=== PATIENT | female | born 1995 | race Caucasian/White ===

== ENCOUNTER 2017-02-20 16:36 | Observation (INO) | payer SELFPAY ==
[2017-02-20] MEDS ORDERED: NS 0.9% 1000 ML* 1,000 ML IV ONE (16:58)
[2017-02-20 18:10] LABS: Urine Bilirubin Negative (Negative); Urine Glucose Negative (Negative); Urine Nitrite Negative (Negative)
[2017-02-20 18:18] LABS: Hematocrit 42 % (35-47); Hemoglobin 14.1 g/dl (12.0-16.0); Mean Corpuscular HGB Conc 34 g/dl (31-36); Mean Corpuscular Hemoglobin 31 pg (27-31); Mean Corpuscular Volume 90 fL (80-97); Mean Platelet Volume 8 um3 (7.4-10.4); Red Blood Count 4.62 10^6/ul (4.0-5.4); Red Cell Distribution Width 12 % (10.5-15); White Blood Count 14.2 10^3/ul (3.5-10.8)
[2017-02-20 18:19] LABS: Add Diff/Slide Review? Slide Review Added; Comments Flag Yes
[2017-02-20 18:33] LABS: ALT 19 U/L (7-52); AST 23 U/L (13-39); Albumin 4.8 g/dL (3.2-5.2); Alkaline Phosphatase 66 U/L (34-104); Anion Gap 9 mmol/L (2-11); BUN/Creatinine Ratio 15.4 (8-20); Blood Urea Nitrogen 10 mg/dL (6-24); CO2 Carbon Dioxide 27 mmol/L (22-32); Calcium 9.1 mg/dL (8.6-10.3); Chloride 100 mmol/L (101-111); EGFR African American 145.3 (>60); Globulin 3.3 g/dL (2-4); Glucose 89 mg/dL (70-100); Potassium 3.4 mmol/L (3.5-5.0); Sodium 136 mmol/L (133-145); Total Protein 8.1 g/dL (6.4-8.9)
[2017-02-20 18:39] LABS: Benzodiazepine Urine Screen None Detected (None Detect)
[2017-02-20] MEDS ORDERED: Potassium Chlor TAB* 20 MEQ TAB.ER PO ONE (18:40)
[2017-02-20 19:05] LABS: Alcohol < 10 mg/dL (<10)
--- NOTE | 2017-02-20 19:56 | ED ---
Hernan Ugarte Benjamin, scribed for Dmitriy Rausch MD on 02/20/17 at 1705 . Syncope/Near Syncope - HPI Summary HPI Summary: 22yo female BIBA after having 2 episodes of Sz at work. Pt doesnt recall the episode, but per EMS, pt was lowered to the ground after the first episode, and then turned apnic and blue. Pt appeared to have passed out temporarily and soon had the second episode. Pt denies any incontinence or biting her tongue during her episodes. Pt feel racing heart immediately after but after drinking water and sitting down for 5 minutes, HR returned to normal. Pt now states feeling little anxious but otherwise normal. Pt is not on any meds and denies any significant PMHx. No hx of Sz or syncope, but FHx of Sz. Pt is 3 days late on her MP. Pt has odd hours at work and pt states taking cardoon, a natural herb that has similar effects to caffeine. One of the known side effects for overdosing Cardoon is Sz. - History Of Current Complaint Chief Complaint: EDSeizure Time Seen by Provider: 02/20/17 16:49 Hx Obtained From: Patient Onset/Duration: Sudden Onset, Lasting Minutes, Resolved Timing: Minutes Context: Witnessed, Loss Of Consciousness Activity At Onset: At Rest Associated Head Trauma: No Aggravating Factor(s): Nothing Alleviating Factor(s): Spontaneous Resolution Associated Signs And Symptoms: Seizure - x2 - Allergies/Home Medications Allergies/Adverse Reactions: Allergies Allergy/AdvReac Type Severity Reaction Status Date / Time No Known Allergies Allergy Verified 09/14/14 13:27 PMH/Surg Hx/FS Hx/Imm Hx Endocrine/Hematology History: Denies: Hx Diabetes, Hx Thyroid Disease Cardiovascular History: Denies: Hx Hypertension Respiratory History: Denies: Hx Asthma, Hx Chronic Obstructive Pulmonary Disease (COPD) GI History: Denies: Hx Ulcer Infectious Disease History: No Infectious Disease History: Denies: Hx Clostridium Difficile, Hx Hepatitis, Hx Human Immunodeficiency Virus (HIV), Hx of Known/Suspected MRSA, Hx Shingles, Hx Tuberculosis, Traveled Outside the [place] in Last 30 Days - Family History Known Family History: Positive: Seizure Disorder - Social History Occupation: Employed Full-time Lives: Alone Alcohol Use: Occasionally Substance Use Type: Reports: None Smoking Status (MU): Current Some Day Smoker Type: Cigarettes Length of Time of Smoking/Using Tobacco: social smoker Review of Systems Constitutional: Negative Eyes: Negative ENT: Negative Cardiovascular: Negative Respiratory: Negative Gastrointestinal: Negative Genitourinary: Negative Musculoskeletal: Negative Skin: Negative Neurological: Other - Szx2 Positive: Syncope Positive: Anxious All Other Systems Reviewed And Are Negative: Yes Physical Exam Triage Information Reviewed: Yes Vital Signs On Initial Exam: Initial Vitals Temp Pulse Resp BP Pulse Ox 99.3 F 120 16 142/90 100 02/20/17 16:40 02/20/17 16:40 02/20/17 16:40 02/20/17 16:40 02/20/17 16:40 Vital Signs Reviewed: Yes Appearance: Positive: Well-Appearing Head/Face: Positive: Normal Head/Face Inspection ENT: Positive: Normal ENT inspection Neck: Positive: Nontender Respiratory/Lung Sounds: Positive: Clear to Auscultation, Breath Sounds Present Cardiovascular: Positive: RRR. Negative: Murmur Abdomen Description: Positive: Nontender Musculoskeletal: Positive: Strength/ROM Intact Neurological: Positive: Sensory/Motor Intact, Alert, Oriented to Person Place, Time, CN Intact II-III, Speech Normal Psychiatric: Positive: Normal Diagnostics - Vital Signs Vital Signs Temp Pulse Resp BP Pulse Ox 02/20/17 16:40 99.3 F 120 16 142/90 100 - Laboratory Result Diagrams: 02/20/17 18:03 02/20/17 18:03 Lab Statement: Any lab studies that have been ordered have been reviewed, and results considered in the medical decision making process. - EKG 1748. Cardiac Rate: Tachycardia - 114bpm EKG Rhythm: Sinus Tachycardia EKG Interpretation: No STEMI Re-Evaluation - Re-Evaluation First Eval Re-Evaluation Time: 18:48 Comment: New information obtained by pt: Pt has odd hours at work and pt states taking kardoon, a natural herb that has similar effects to caffeine. One of the known side effects for overdosing Cardoon is Sz. RN will call poison control. Course/Dx Course Of Treatment: The patient has been using the street drug Kratom, and per poison center the side effect is seizure. The patient is stable hemodynamically, and non focal neuro exam. Will observe and plan for dc home. She is not homicidal or suicidal. She states she has been taking the drug to attempt to stay up with a varying work schedule and little sleep. Poison center recommends an OBV admission on tele over night. Discussed to Dr. Akers (Hospitalist) for admission. 19:54. - Diagnoses Provider Diagnoses: Seizure, Drug abuse Discharge - Discharge Plan Condition: Good Disposition: ADMITTED TO [facility] Referrals: No Primary Care Phys,NOPCP [Primary Care Provider] - The documentation as recorded by the Hernan ross Benjamin accurately reflects the service I personally performed and the decisions made by me, Dmitriy Rausch MD.
--- NOTE | 2017-02-20 20:00 | RAD ---
INDICATION: Seizure. COMPARISON: There are no prior studies available for comparison. TECHNIQUE: Contiguous axial sections of the brain were obtained from the skull base to the vertex without contrast. FINDINGS: The ventricles, cisterns and sulci are within normal limits. No significant focal abnormality or mass effect is seen. There is no evidence for hemorrhage. No significant focal osseous abnormality is seen. The visualized portion of the paranasal sinuses and mastoid air cells appear clear. IMPRESSION: NO EVIDENCE FOR ACUTE INTRACRANIAL ABNORMALITY.
--- NOTE | 2017-02-20 20:07 | RAD ---
INDICATION: Chest pain. COMPARISON: There are no prior studies available for comparison. TECHNIQUE: Dual-energy PA and lateral views of the chest were obtained. FINDINGS: The heart is within normal limits in size. Mediastinal and hilar contours appear within normal limits. The lungs are clear. No pleural effusion is present. There is a linear density which projects laterally over the left hemithorax which is likely artifactual. IMPRESSION: NO EVIDENCE FOR ACTIVE CARDIOPULMONARY DISEASE.
[2017-02-20] MEDS: NS 0.9% 1000 ML* 1,000 ML IV SCH (22:46)
[2017-02-20] MEDS ORDERED: Nicotine Inhaler* 10 MG AMP INH PRN (23:44)
[2017-02-21] MEDS ORDERED: Mouth Piece, Nicotine* 1 EACH CARTRIDGE ONE (00:06)
--- NOTE | 2017-02-21 05:55 | HP ---
HISTORY AND PHYSICAL: DATE OF ADMISSION: 02/20/17 CHIEF COMPLAINT: Seizure. HISTORY OF PRESENT ILLNESS: The patient is a 22-year-old woman who says she was at work and the nex t thing she knew a coworker was waking her up and told her she had a seizure. She does not have any specifics, said she was turning blue. Apparently, it lasted about 2 minutes. This has never happen ed before. She admits she has been taking a natural product called Everpurse to help her stay awake in addition to coffee. She has been having trouble with her sleep pattern since she has started her [employer] job. She denies any tongue biting or bowel or bladder incontinence. She currently feels well. She did bite the inside of her cheek apparently when this happened. PAST MEDICAL HISTORY: She has no significant past medical history. MEDICATIONS: She is on medications. ALLERGIES: She has no known drug allergies. FAMILY HISTORY: Reviewed and noncontributory. SOCIAL HISTORY: She smokes about 2 packs per week. Social alcohol. Does take medications like Matt ax and oxycodone. She works in a cafe. She has got a boyfriend. She has got no children. REVIEW OF SYSTEMS: A 14-point review of systems was completed with the patient. All pertinent posit mandeep and negatives are in the history of present illness, otherwise is negative. PHYSICAL EXAMINATION GENERAL: A pleasant woman lying in bed, in no acute distress. VITAL SIGNS: Temperature 98.2 degrees, heart rate 88 beats per minute, respiratory rate 20 breaths per minute, pulse ox 100% on room air, blood pressure 132/83. HEENT: Normocephalic, atraumatic. Pupils are equal, round and reactive to light. Moist mucous memb ranes. NECK: Supple. No JVD, bruits, palpable thyroid or lymphadenopathy. CHEST: Clear to auscultation and percussion bilaterally. CARDIOVASCULAR: S1, S2 appreciated. Regular rate and rhythm. No murmurs, gallops, or rubs. ABDOMEN: Positive bowel sounds in all 4 quadrants. Soft, nontender, and nondistended. No hepatosp lenomegaly. EXTREMITIES: No cyanosis, clubbing, or edema. +2 peripheral pulses bilaterally. NEUROLOGIC: Alert and oriented x3. Moves all extremities. SKIN: No rashes or abnormalities. LABORATORY DATA: White count , hemoglobin 14.1, hematocrit 42, platelets 321. Sodium 136, pot assium 3.4, chloride 100, CO2 27, BUN 10, creatinine 0.65, glucose 89. Urine tox is negative. Urin alysis unremarkable. INR is 0.86. Chest x-ray was interpreted by Radiology as no evidence of activ e cardiopulmonary disease. Brain CT, no evidence for acute intracranial abnormality. EKG shows sinu s tachycardia at a rate of 114 beats per minute, normal axis, no acute ST-T wave changes, incomplete right bundle branch block. ASSESSMENT AND PLAN: 1. Seizure. Apparently, in speaking to [employer], this natural treatment she was taking can c ause seizure-like activity. They recommend monitoring her for one day. We will place her on teleme try and monitor. Get EEG in a.m. If she is stable, she may be to go home as early as tomorrow. If not, consider Neurology consult. 2. FEN. Regular diet. 3. DVT prophylaxis. None. She is young and ambulatory. 4. The patient is a full code. TIME SPENT: Over 75 minutes were spent on this H and P, more than 40 minutes of which was spent dir ect [id number] contact with the patient in evaluation, physical exam, counseling, and coordination of care. [id number]/[facility] #: [id number]
[2017-02-21] MEDS: NS 0.9% 1000 ML* 1,000 ML IV SCH (08:43)
--- NOTE | 2017-02-21 09:57 | DCNOTE ---
Patient seen this morning. No further issues overnight. Says she thinks she may have taken more of the Kratom than usual. Says she typically takes it as a stimulant for extra energy as coffee makes her a bit tremulous. Says she will stop taking it. On exam, RRR, s1 and s2 present, no m/g/r, abd soft, NTND, BS+, AOx3, CN II-XII intact, strength 5/5 throughout B/L UEs and LEs, sensation intact and symmetric B/L EEG done this morning, pending read. If normal will plant to send home. No need for anti-seizure medications at this point. Will need PCP follow-up which we will arrange.
[2017-02-21 12:13] VITALS: BP 114/69
--- NOTE | 2017-02-22 03:54 | EEG ---
ELECTROENCEPHALOGRAPHY REPORT: DATE OF STUDY: 02/21/17 - ROOM #438 LOCATION: The patient is an inpatient. ORDERING PHYSICIAN: Samy Akers MD HISTORY: This is a 22-year-old left-handed woman admitted after a seizure-like episode while she was at work. She recalls being at work on the [employer] and then suddenly woken up by her coworker, being told she had a seizure. The episode lasted about 2 minutes. She was confused when she came to. Her coworker states she turned blue and bit the left side of her cheek. Of note, she states that she has been taking Kratom, and some synthetic opioid and stimulant she bought online. She has been taking this along with coffee and feels she may have taken too many. She has also had difficulty sleeping recently. Her father has epilepsy. EEG's requested to evaluate for epileptiform abnormalities. MEDICATIONS: 1. Nicotine inhaler. 2. Normal saline. DESCRIPTION: The most notable feature of the interictal EEG is occasional brief paroxysms of higher voltage, delta range slowing in the frontocentral regions bilaterally. This slowing often had a bias towards the left hemisphere. In addition, on a few occasions, there was focal slowing in the left temporal region intermixed with sharp features, which were maximal at T5. The slowing was polymorphic in nature and the sharp features did not have definitive epileptiform characteristics. Otherwise, the waking background showed appropriate organization with clearly defined anterior to posterior voltage and frequency gradients. There was a well - defined posterior dominant rhythm of 10.5 Hz, which was symmetrical and showed normal reactivity. Anteriorly, there was an expected pattern of lower voltage, irregular, mixed faster frequencies. Hyperventilation and photic stimulation were not performed. The patient did not become significantly drowsy during the study. Throughout the recording, there were no definitive epileptiform abnormalities. IMPRESSION: This is an abnormal waking EEG due to the presence of occasional paroxysms of frontocentrally predominant slowing, which had a bias to the left hemisphere as well as 2 to 3 periods of focal slowing in the left temporal region associated with sharp features, which were not definitively epileptiform in nature. These findings are suggestive of underlying neuronal dysfunction in the left temporal region. The periods of frontocentrally predominant slowing may be indicative of a more generalized nonspecific cerebral dysfunction. The background is otherwise normal. There are no definitive epileptiform abnormalities. [id number]/[facility] #: [id number] [facility]
--- NOTE | 2017-02-22 15:25 | DS ---
DISCHARGE SUMMARY: DATE OF ADMISSION: 02/20/17 DATE OF DISCHARGE: 02/21/17 PRIMARY CARE PHYSICIAN: The patient is in the process of obtaining a new PCP. PRINCIPAL DISCHARGE DIAGNOSIS: Seizure likely secondary to supplement Kratom. DISCHARGE MEDICATION REGIMEN: None. STUDIES DONE DURING HOSPITALIZATION: Chest x-ray, impression: No evidence for active cardiopulmona ry disease. CT of the brain, impression: No evidence for acute intracranial abnormality. EEG shows abnormal waking EEG due to the presence of the occasional paroxysms to frontocentrally pre dominant slowing, which had a bias of the left hemisphere as well as 2 to 3 periods of focal slowing in the left temporal region associated with sharp features, which were not definitively epileptifor m in nature. These findings are suggestive of underlying neuronal dysfunction in the left temporal region. Periods of frontocentral predominant slowing may be indicative of a more generalized nonspec ific cerebral dysfunction. The background is otherwise normal. There are no definitive epileptiform abnormalities. HISTORY OF PRESENT ILLNESS AND HOSPITAL SUMMARY: Please see the full history and physical by Dr. Braulio Akers for full details. Briefly, Ms. Correa is a 22-year-old female with no past medical history , who has been taking a natural product called Kratom as a stimulant, who has an episode of unrespon siveness and possible seizure activity at work. She has never had a history of seizures in the past . She did not have any bowel or bladder incontinence. She apparently bit the inside of her cheek. It sounded as if she had some postictal confusion afterwards, which resolved. She was monitored in the hospital overnight. CT of the brain was unremarkable. EEG was done that did not show any ally r epileptiform activities, but did show some abnormalities. The patient had no further seizure acti vities here in the hospital. It was recommended she stop this Kratom supplement and she will be arr anged to follow up with the PCP as an outpatient. No indication for any antiepileptic medications a t this time. TIME SPENT: Total time spent on this discharge, 40 minutes. This is a summary of the hospitalization. Please see the full medical record for further details. [id number]/[facility] #: [id number]
== END 2017-02-21 16:11 | disposition home or self-care (01) ==
LOC: ED 16:36 → MEDTELE 20:18
PROVIDERS: ADMIT Internal Medicine; ATTEND Hospitalist
DX: F19.10 Other psychoactive substance abuse, uncomplicated (principal); R56.9 Unspecified convulsions; F17.200 Nicotine dependence, unspecified, uncomplicated
CPT/HCPCS: 36415; 70450; 71020; 80053; 80307; 80320; 81003; 83605; 83735; 84484; 84702; 85025; 85610; 93005; 95816; 99284; A9270-GY; G0378; G0480

== ENCOUNTER 2018-02-22 15:11 | Emergency (ER) | payer SELFPAY ==
[2018-02-22 15:39] VITALS: BP 124/81
[2018-02-22] MEDS ORDERED: Amoxicillin/Clavulanate TAB* 875 MG PO ONE (16:39)
--- NOTE | 2018-02-22 16:47 | UC ---
General HPI - HPI Summary HPI Summary: States yesterday she was eating popcorn yesterday and part of the kernel was incrusted in her gum. Patient c/o severe pain on gum radiating to cheek and maxillary area on the left side. She has taken ibuprofen without relief. she was able to extract the kernel from her gum but pain continues. Denies chills or fever. - History of Current Complaint Chief Complaint: UCDentalProblem Stated Complaint: INFLAMMED GUM SWOLLEN FACE Time Seen by Provider: 02/22/18 16:33 Hx Obtained From: Patient Hx Last Menstrual Period: [id number] Onset/Duration: Sudden Onset Onset Severity: Mild Current Severity: Severe Pain Intensity: 8 Pain Location at: gum Pain Radiates to: cheek - Allergy/Home Medications Allergies/Adverse Reactions: Allergies Allergy/AdvReac Type Severity Reaction Status Date / Time No Known Allergies Allergy Verified 02/22/18 15:39 PMH/Surg Hx/FS Hx/Imm Hx Previously Healthy: Yes - Surgical History Surgical History: None - Family History Known Family History: Positive: Seizure Disorder - Social History Alcohol Use: Occasionally Substance Use Type: None Substance Use Comment - Amount & Last Used: denies Smoking Status (MU): Former Smoker Type: eCigarettes Length of Time of Smoking/Using Tobacco: social smoker Review of Systems Constitutional: Negative Skin: Negative Eyes: Negative ENT: Dental Pain Respiratory: Negative Cardiovascular: Negative Gastrointestinal: Negative Genitourinary: Negative Motor: Negative Neurovascular: Negative Musculoskeletal: Negative Neurological: Negative Psychological: Negative All Other Systems Reviewed And Are Negative: Yes Physical Exam Triage Information Reviewed: Yes Appearance: Well-Appearing, No Pain Distress, Well-Nourished Vital Signs: Initial Vital Signs Temp 98.6 F 02/22/18 15:34 Pulse 97 02/22/18 15:34 Resp 16 02/22/18 15:34 BP 124/81 02/22/18 15:34 Pulse Ox 100 02/22/18 15:34 Vital Signs Reviewed: Yes Eyes: Positive: Conjunctiva Clear ENT: Positive: Normal ENT inspection, Hearing grossly normal, Pharynx normal, TMs normal, Dental tenderness, Other - erythema on gingiva surrounding left canine. No foreign body. No bleeding Neck: Positive: Supple, Nontender, No Lymphadenopathy Respiratory: Positive: Chest non-tender, Lungs clear, Normal breath sounds, No respiratory distress Cardiovascular: Positive: RRR, No Murmur, Pulses Normal, Brisk Capillary Refill Abdomen Description: Positive: Nontender, No Organomegaly, Soft Bowel Sounds: Positive: Present Musculoskeletal: Positive: Strength Intact, ROM Intact, No Edema Course/Dx - Course Course Of Treatment: start antibiotics as prescribed, mouth rinses with NS. Probiotics. F/u with PCP - Differential Dx - Multi-Symptom Provider Diagnoses: gingivitis Discharge - Sign-Out/Discharge Documenting (check all that apply): Patient Departure All imaging exams completed and their final reports reviewed: No Studies - Discharge Plan Condition: Good Disposition: HOME Prescriptions: Amoxicillin/Clavulanate TAB* [Augmentin TAB 875*] 875 mg PO BID 7 Days #14 tab Chlorhexidine MOUTHWASH 0.12%* [Peridex Mouth Wash 0.12%*] 10 ml .SEE ORDER BID #1 oral.soln Patient Education Materials: Chlorhexidine (Into the mouth), Amoxicillin/ Clavulanate Potassium (By mouth) Referrals: No Primary Care Phys,NOPCP [Primary Care Provider] - [facility] [place] [facility] [Outside] - Billing Disposition and Condition Condition: GOOD Disposition: Home
== END 2018-02-22 16:45 | disposition home or self-care (01) ==
LOC: UCEAST 15:11
DX: K05.01 Acute gingivitis, non-plaque induced (principal); Z87.891 Personal history of nicotine dependence
CPT/HCPCS: 99212; G0463

== ENCOUNTER 2018-04-21 | Emergency (ER) | payer SELFPAY ==
[2018-04-21 02:47] VITALS: BP 109/68
--- NOTE | 2018-04-21 03:32 | ED ---
Substance Abuse/Use - HPI Summary HPI Summary: Patient is a 23 y/o F w/ c/o substance abuse. She states that she took three tablets of methadone today at around 2200. Patient reports a friend gave them to her. She became unresponsive, EMS was called who found her as such. Patient was given 2mg narcan nasally and 2mg narcan ivp. In the room, patient is responsive and A&Ox3. She denies other Hx of serious drug usage, noting that she has taken Xanax recreationally before but states this is not regular. Home medications are denied. LNMP was towards the end of last month. On triage, pain is denied, nothing is noted to aggravate/alleviate Sx. - History Of Current Complaint Chief Complaint: EDOverdose Stated Complaint: OVERDOSE Time Seen by Provider: 04/21/18 00:20 Hx Obtained From: Patient Hx Last Menstrual Period: [id number] Onset/Duration of Drug/ETOH Abuse: Hours - 2200 04/20/18 Ingestion History: Type/Name Of Drug - methadone, Amount Ingested - 3 tablets Severity Currently: None - pain denied Character: Other - patient is alert and calm in the room Aggravating Factor(s): Nothing Alleviating Factor(s): Nothing Associated Signs And Symptoms: Negative - Allergies/Home Medications Allergies/Adverse Reactions: Allergies Allergy/AdvReac Type Severity Reaction Status Date / Time No Known Allergies Allergy Verified 02/22/18 15:39 Home Medications: Home Medications NK [No Home Medications Reported] 04/21/18 [History Confirmed 04/21/18] PMH/Surg Hx/FS Hx/Imm Hx Endocrine/Hematology History: Denies: Hx Diabetes, Hx Thyroid Disease Cardiovascular History: Denies: Hx Hypertension Respiratory History: Denies: Hx Asthma, Hx Chronic Obstructive Pulmonary Disease (COPD) GI History: Denies: Hx Ulcer Musculoskeletal History: Reports: Other Musculoskeletal History - torn ligament ankle Sensory History: Denies: Hx Contacts or Glasses, Hx Hearing Aid Opthamlomology History: Denies: Hx Contacts or Glasses Psychiatric History: Reports: Hx Anxiety - self medicates pt does not have MD Infectious Disease History: No Infectious Disease History: Denies: Hx Clostridium Difficile, Hx Hepatitis, Hx Human Immunodeficiency Virus (HIV), Hx of Known/Suspected MRSA, Hx Shingles, Hx Tuberculosis, Traveled Outside the [place] in Last 30 Days - Family History Known Family History: Positive: Seizure Disorder - Social History Alcohol Use: Occasionally Substance Use Type: Reports: None Substance Use Comment - Amount & Last Used: methadone Smoking Status (MU): Current Every Day Smoker Type: eCigarettes Length of Time of Smoking/Using Tobacco: social smoker Review of Systems Negative: Fever - on vitals, temp is 98.0 F Psychological: Other - methadone abuse All Other Systems Reviewed And Are Negative: Yes Physical Exam - Summary Physical Exam Summary: VITAL SIGNS: Reviewed. GENERAL: Patient is a well-developed and nourished female who is lying comfortable in the stretcher. Patient is not in any acute respiratory distress. HEAD AND FACE: No signs of trauma. No ecchymosis, hematomas or skull depressions. No sinus tenderness. EYES: pupils are dilated but equal and reactive, EOMI x 2, No injected conjunctiva, no nystagmus. EARS: Hearing grossly intact. Ear canals and tympanic membranes are within normal limits. MOUTH: Oropharynx within normal limits. NECK: Supple, trachea is midline, no adenopathy, no JVD, no carotid bruit, no c- spine tenderness, neck with full ROM. CHEST: Symmetric, no tenderness at palpation LUNGS: Clear to auscultation bilaterally. No wheezing or crackles. CVS: Regular rate and rhythm, S1 and S2 present, no murmurs or gallops appreciated. ABDOMEN: Soft, non-tender. No signs of distention. No rebound no guarding, and no masses palpated. Bowel sounds are normal. EXTREMITIES: FROM in all major joints, no edema, no cyanosis or clubbing. NEURO: Alert and oriented x 3. No acute neurological deficits. Speech is normal and follows commands. SKIN: Dry and warm Triage Information Reviewed: Yes Vital Signs On Initial Exam: Initial Vitals Temp Pulse Resp BP Pulse Ox 98.0 F 114 16 138/93 98 04/21/18 00:04 04/21/18 00:04 04/21/18 00:04 04/21/18 00:04 04/21/18 00:04 Vital Signs Reviewed: Yes Diagnostics - Vital Signs Vital Signs Temp Pulse Resp BP Pulse Ox 04/21/18 02:46 98.6 F 78 14 109/68 97 04/21/18 02:38 107 116/78 96 04/21/18 02:08 108 122/83 98 04/21/18 02:00 106 96 04/21/18 01:38 117 127/86 97 04/21/18 01:08 118 126/79 99 04/21/18 01:00 123 99 04/21/18 00:38 118 122/84 98 04/21/18 00:10 114 98 04/21/18 00:08 110 138/93 98 04/21/18 00:04 98.0 F 114 16 138/93 98 - Laboratory Lab Statement: Any lab studies that have been ordered have been reviewed, and results considered in the medical decision making process. Re-Evaluation - Re-Evaluation First Eval Re-Evaluation Time: 02:38 Comment: Patient remains asymptomatic, no signs of lethargic. She will be discharged to home and follow up with PCP in 1-2 days. Patient is agreeable with discharge. Course/Dx - Course Course Of Treatment: Patient is a 23 y/o F w/ c/o substance abuse. She states that she took three tablets of methadone today at around 2200. Patient reports a friend gave them to her. She became unresponsive, EMS was called who found her as such. Patient was given 2mg narcan nasally and 2mg narcan ivp. In the room, patient is responsive and A&Ox3. She denies other Hx of serious drug usage , noting that she has taken Xanax recreationally before but states this is not regular. Home medications are denied. Phyiscal exam showed pupils are dilated but equal and reactive, EOMI x 2. During ED stay, patient remains asymptomatic, no signs of lethargic. She will be discharged to home and follow up with PCP in 1-2 days. Patient is agreeable with discharge. Dx of methadone abuse. - Diagnoses Provider Diagnoses: Mild methadone abuse Discharge - Sign-Out/Discharge Documenting (check all that apply): Patient Departure - discharge - Discharge Plan Condition: Stable Disposition: HOME Patient Education Materials: Polysubstance Abuse (ED) Referrals: [facility] [Outside] - 2 Days Additional Instructions: RETURN TO THE EMERGENCY DEPARTMENT FOR CHANGING OR WORSENING SYMPTOMS. FOLLOW UP WITH PRIMARY CARE PHYSICIAN IN 1-2 DAYS. - Attestation Statements Document Initiated by Scribe: Yes Documenting Scribe: Jarrett Fierro Provider For Whom Scribe is Documenting (Include Credential): Chen Mg MD Scribe Attestation: IJarrett , scribed for Chen Mg MD on 04/21/18 at 0335.
== END 2018-04-21 02:46 | disposition home or self-care (01) ==
LOC: ED
DX: F11.10 Opioid abuse, uncomplicated (principal); F17.210 Nicotine dependence, cigarettes, uncomplicated
CPT/HCPCS: 99283

== ENCOUNTER 2018-04-21 15:30 | Emergency (ER) | payer SELFPAY ==
[2018-04-21] MEDS ORDERED: Acetaminophen TAB* 325 MG PO ONE (17:17)
[2018-04-21 17:50] LABS: ABS Basophils 0 10^3/ul (0-0.2); ABS Eosinophils 0 10^3/ul (0-0.6); ABS Lymphocytes 1.4 10^3/ul (1.0-4.8); ABS Monocytes 0.5 10^3/ul (0-0.8); ABS Neutrophils 16.1 10^3/ul (1.5-7.7); ABS Nucleated RBC 0 10^3/ul; Eosinophil % 0.1 % (0-6); Hematocrit 35 % (35-47); Hemoglobin 11.9 g/dl (12.0-16.0); Lymphocyte % 7.5 % (25-47); Mean Corpuscular HGB Conc 34 g/dl (31-36); Mean Corpuscular Hemoglobin 30 pg (27-31); Mean Corpuscular Volume 89 fL (80-97); Mean Platelet Volume 7.1 um3 (7.4-10.4); Nucleated Red Blood Cells % 0; Platelet Count 319 10^3/ul (150-450); Red Blood Count 3.97 10^6/ul (4.00-5.40); Red Cell Distribution Width 13 % (10.5-15)
[2018-04-21 18:05] LABS: EGFR Non-African American 127.7 (>60)
--- NOTE | 2018-04-21 19:01 | ED ---
Substance Abuse/Use - HPI Summary HPI Summary: Patient complains of lethargy, mental fogginess, weakness. Patient was seen here last night for accidental methadone OD, was discharged home alert and oriented. Patient states she woke up and has improved from yesterday but is still not back to baseline. Denies fever, cough, sore throat, CP, SOB, N/V/D, abdominal pain, change in urine, change in BM. Medical history is none. - History Of Current Complaint Chief Complaint: EDWeakness Stated Complaint: HEADACHE/CONFUSED Time Seen by Provider: 04/21/18 16:40 Hx Obtained From: Patient Hx Last Menstrual Period: [id number] ?: No Onset/Duration of Drug/ETOH Abuse: Hours Overdose Characteristics: Oral Severity Initially: Moderate Severity Currently: Moderate Character: Lethargic Aggravating Factor(s): Nothing Alleviating Factor(s): Nothing Associated Signs And Symptoms: Negative - Allergies/Home Medications Allergies/Adverse Reactions: Allergies Allergy/AdvReac Type Severity Reaction Status Date / Time No Known Allergies Allergy Verified 02/22/18 15:39 PMH/Surg Hx/FS Hx/Imm Hx Endocrine/Hematology History: Denies: Hx Anticoagulant Therapy, Hx Diabetes, Hx Thyroid Disease Cardiovascular History: Denies: Hx Hypertension Respiratory History: Denies: Hx Asthma, Hx Chronic Obstructive Pulmonary Disease (COPD) GI History: Denies: Hx Ulcer Musculoskeletal History: Reports: Other Musculoskeletal History - torn ligament ankle Sensory History: Denies: Hx Contacts or Glasses, Hx Hearing Aid Opthamlomology History: Denies: Hx Contacts or Glasses Psychiatric History: Reports: Hx Anxiety - self medicates pt does not have MD Infectious Disease History: No Infectious Disease History: Denies: Hx Clostridium Difficile, Hx Hepatitis, Hx Human Immunodeficiency Virus (HIV), Hx of Known/Suspected MRSA, Hx Shingles, Hx Tuberculosis, Traveled Outside the [place] in Last 30 Days - Family History Known Family History: Positive: Seizure Disorder - Social History Alcohol Use: Occasionally Substance Use Type: Reports: Other Substance Use Comment - Amount & Last Used: methadone Smoking Status (MU): Current Every Day Smoker Type: eCigarettes Length of Time of Smoking/Using Tobacco: social smoker Review of Systems Constitutional: Negative Eyes: Negative ENT: Negative Cardiovascular: Negative Respiratory: Negative Gastrointestinal: Negative Genitourinary: Negative Musculoskeletal: Negative Skin: Negative Positive: Weakness Psychological: Normal All Other Systems Reviewed And Are Negative: Yes Physical Exam - Summary Physical Exam Summary: Patient alert and oriented, responding appropriately. No evidence of lethargy or mental fogginess. Patient is somewhat anxious. Boyfriend description of symptoms appears to be causing some anxiety for pt. Triage Information Reviewed: Yes Vital Signs On Initial Exam: Initial Vitals Temp Pulse Resp BP Pulse Ox 98.1 F 112 16 117/78 97 04/21/18 15:34 04/21/18 15:34 04/21/18 15:34 04/21/18 15:34 04/21/18 15:34 Vital Signs Reviewed: Yes Appearance: Positive: Well-Appearing Skin: Positive: Warm Head/Face: Positive: Normal Head/Face Inspection Eyes: Positive: Normal Neck: Positive: Supple Respiratory/Lung Sounds: Positive: Clear to Auscultation Cardiovascular: Positive: Normal Abdomen Description: Positive: Nontender Musculoskeletal: Positive: Normal Neurological: Positive: Normal Psychiatric: Positive: Anxious AVPU Assessment: Alert - [place] Coma Scale Best Eye Response: 4 - Spontaneous Best Motor Response: 6 - Obeys Commands Best Verbal Response: 5 - Oriented Coma Scale Total: 15 Diagnostics - Vital Signs Vital Signs Temp Pulse Resp BP Pulse Ox 04/21/18 18:20 98.3 F 96 15 105/68 100 04/21/18 17:00 102 104/71 97 04/21/18 15:34 98.1 F 112 16 117/78 97 - Laboratory Lab Results: Lab Results 04/21/18 04/21/18 Range/Units 17:40 17:40 WBC 18.0 H (3.5-10.8) 10^3/ul RBC 3.97 L (4.00-5.40) 10^6/ul Hgb 11.9 L (12.0-16.0) g/dl Hct 35 (35-47) % MCV 89 (80-97) fL MCH 30 (27-31) pg MCHC 34 (31-36) g/dl RDW 13 (10.5-15) % Plt Count 319 (150-450) 10^3/ul MPV 7.1 L (7.4-10.4) um3 Neut % (Auto) 89.5 H (38-83) % Lymph % (Auto) 7.5 L (25-47) % [place] % (Auto) 2.8 (0-7) % Eos % (Auto) 0.1 (0-6) % Baso % (Auto) 0.1 (0-2) % Absolute Neuts (auto) 16.1 H (1.5-7.7) 10^3/ul Absolute Lymphs (auto) 1.4 (1.0-4.8) 10^3/ul Absolute Monos (auto) 0.5 (0-0.8) 10^3/ul Absolute Eos (auto) 0 (0-0.6) 10^3/ul Absolute Basos (auto) 0 (0-0.2) 10^3/ul Absolute Nucleated RBC 0 10^3/ul Nucleated RBC % 0 Sodium 133 L (135-145) mmol/L Potassium 5.0 (3.5-5.0) mmol/L Chloride 97 L (101-111) mmol/L Carbon Dioxide 30 (22-32) mmol/L Anion Gap 6 (2-11) mmol/L BUN 12 (6-24) mg/dL Creatinine 0.58 (0.51-0.95) mg/dL Est GFR ( Amer) 154.5 (>60) Est GFR (Non-Af Amer) 127.7 (>60) BUN/Creatinine Ratio 20.7 H (8-20) Glucose 94 (70-100) mg/dL Calcium 9.2 (8.6-10.3) mg/dL Total Bilirubin 0.40 (0.2-1.0) mg/dL AST 83 H (13-39) U/L ALT 97 H (7-52) U/L Alkaline Phosphatase 61 (34-104) U/L C-Reactive Protein 37.74 H (<8.01) mg/L Total Protein 7.0 (6.4-8.9) g/dL Albumin 4.4 (3.2-5.2) g/dL Globulin 2.6 (2-4) g/dL Albumin/Globulin Ratio 1.7 (1-3) Beta HCG, Quant < 0.60 mIU/mL Result Diagrams: 04/21/18 17:40 04/21/18 17:40 Lab Statement: Any lab studies that have been ordered have been reviewed, and results considered in the medical decision making process. Course/Dx - Course Course Of Treatment: History this available Patient complains of lethargy, mental fogginess, weakness. Patient was seen here last night for accidental methadone OD, was discharged home alert and oriented. Patient states she woke up and has improved from yesterday but is still not back to baseline. Denies fever, cough, sore throat, CP, SOB, N/V/D, abdominal pain, change in urine, change in BM. Medical history is none. Physical exam:Patient alert and oriented, responding appropriately. No evidence of lethargy or mental fogginess. Patient is somewhat anxious. Boyfriend description of symptoms appears to be causing some anxiety for pt. Patient vital signs are behavior did not change during observation. Patient was discharged home - Diagnoses Provider Diagnoses: Substance abuse Discharge - Sign-Out/Discharge Documenting (check all that apply): Patient Departure - Discharge Plan Condition: Stable Disposition: HOME Patient Education Materials: Weakness (ED) Forms: *Work Release Referrals: No Primary Care Phys,NOPCP [Primary Care Provider] - Additional Instructions: Follow-up primary care. Return to the ED for any new or worsening symptoms - Billing Disposition and Condition Condition: STABLE Disposition: Home
[2018-04-21 19:11] VITALS: BP 106/63
== END 2018-04-21 19:05 | disposition home or self-care (01) ==
LOC: ED 15:30
DX: F11.10 Opioid abuse, uncomplicated (principal); R53.83 Other fatigue; F17.210 Nicotine dependence, cigarettes, uncomplicated
CPT/HCPCS: 36415; 80053; 84702; 85025; 86140; 99282; A9270-GY